=== PATIENT | female | born 1960 | race Caucasian/White ===

== ENCOUNTER 2021-12-07 18:53 | Inpatient (IN) | payer OTHER, BC, SELFPAY ==
--- NOTE | ~2021-12-07 | XR_ITS ---
XR hip RT 2V w AP pelvis DATE: 12/08/2021 14:30 INDICATION: Fall yesterday. TECHNIQUE: AP pelvis. AP and lateral views of right hip COMPARISON: None FINDINGS: There is a probable right femoral neck fracture with possible intertrochanteric involvement . There is minimal displacement. CT pelvic examination including right hip would be helpful for more definitive evaluation. No pelvic fracture or bone destruction is detected. The pubic symphysis and sacroiliac joints are int act. Hip joint spaces are symmetric and well preserved. IMPRESSION: Probable right femoral neck fracture with possible intertrochanteric extension; consider CT pelvis for more definitive evaluation Reviewed, dictated and finalized at location A. IMPRESSION: Probable right femoral neck fracture with possible intertrochanteri c extension; consider CT pelvis for more definitive evaluation
--- NOTE | ~2021-12-07 | XR_ITS ---
XR chest 1V portable DATE: 12/08/2021 05:45 INDICATION: Preoperative evaluation TECHNIQUE: Portable upright AP chest on 12/08/2021 at 0530 hours COMPARISON: None FINDINGS: Normal heart size. Mild aortic tortuosity. No hilar or mediastinal enlargement. No pulmonary infiltrate or consolidation, pleural effusion or pulmonary vascular congestion or pneumo thorax. IMPRESSION: No active cardiopulmonary disease Reviewed, dictated and finalized at location A.
--- NOTE | ~2021-12-07 | XR_ITS ---
EXAMINATION: XR surgery orthopedic DATE: 12/09/2021 9:05 CDT INDICATION: RIGHT HIP PINNING . TECHNIQUE: A total of 10 fluoroscopic images of the right hip were obtained during by the surgeon. I was not present in the operating room. Fluoroscopy exposure time was 187.6 seconds, dose 68.21 mGym2. COMPARISON: None FINDINGS: Multiple fluoroscopic images document successful screw fixation of a right femoral neck fracture. IMPRESSION: No radiographic evidence of procedure or hardware-related complication. Reviewed, dictated and finalized at location K.
--- NOTE | 2021-12-07 18:48 | ADMGEN ---
This patient, Carol Ann Mckeon, was admitted to Medical Room 246-. Patient/family oriented to hospital policies and general routines including ID bracelet, bed and alarms, visiting hours, pain management, procedures, bathroom and other care routines, personal items, smoking policy, room service/diet, and visiting hours. Information on how to activate the Rapid Response Team has been discussed. Patient/Family are encouraged to report perceived risks to care and to ask questions if they do not understand what they are told or what they should do.
[2021-12-07 18:49] VITALS: BP 145/84; PULSE 73; RESP 14; TEMP 36.2; O2SAT 98
[2021-12-07 19:34] VITALS: BP 123/84; PULSE 80; RESP 18; TEMP 36.1; O2SAT 95
[2021-12-07] MEDS: MORPHINE SULFATE (*CRX) 2 MG/ML INJ IV PUSH (19:44)
--- NOTE | 2021-12-07 20:00 | PM.IMHP ---
H&P: HPI History of Present Illness Date/Time: 12/07/21 20:00 Chief Complaint: Right hip fracture. Narrative: This is a very pleasant 61-year-old female with hypertension who is a direct admission to the medical floor from the ER at [facility] after she was found to have a hip fracture after a fall. While walking across a tile floor at work today she got her foot tripped up on an uneven surface which caused her to lose her balance and fall onto her right hip. She reports hearing a ?pop? in the hip and she was unable to get herself up without help. When she got up she could not bear weight on the right leg due to severe pain in the right hip and groin. She was taken to [facility] Emergency Department and was found to have a right femoral neck fracture. Dr. Naylor was consulted due to lack of orthopedic surgery at that facility and he has graciously agreed to see her in consult. At the time my evaluation she complains of significant aching pain in her right hip radiating into the groin and occasionally down her right leg. She did not sustain other injuries in the fall and she specifically denies head trauma and loss of consciousness. She also denies antecedent symptoms prior to the fall. Review of Systems Review of Systems: Twelve systems were reviewed. She received her 2nd COVID booster proximally 1/2 weeks ago and she felt bad for a day however has felt great since that time. No recent cold or flu symptoms. She has no history of cardiac or pulmonary disease. No exertional chest pain or shortness of breath. No syncope or presyncope. She had diverticulitis in October and had previously struggled with constipation however she is now eating a higher fiber diet and is having regular bowel movements. No dysuria or signs of UTI. No history of DVT. Except as documented, all other systems were reviewed and are negative. [facility] Past Medical History Medical History (Updated 12/07/21 @ 22:58 by Suzette Viveros PA-C) Anxiety and depression Diverticulitis (10/2021) Hypertension Overactive bladder Surgical History Surgical History (Updated 12/07/21 @ 22:58 by Suzette Viveros PA-C) History of dilation of urethra History of tubal ligation Family History Family History Father COPD (chronic obstructive pulmonary disease) Heart failure Colon cancer Mother Hypertension Social History Social History (Updated 12/07/21 @ 22:59 by Suzette Viveros PA-C) Social History: Surrogate decision maker: Toby Mckeon, . Code status: Full code. Smoking status: Never smoker Alcohol intake: current Drinks per week: 2 Substance use: never Additional living arrangements comments: The patient lives with her in [place]. They have a 31-year-old daughter with autism who lives in a skilled nursing in [place]. Additional occupation/education comments: Works at a [employer] in [place]. Spiritual care concerns: No Meds Home Medications and Allergies Home Medications Medication Instructions Recorded Confirmed Type amitriptyline 10 mg PO HS 12/07/21 12/07/21 History escitalopram oxalate 20 mg PO DAILY 12/07/21 12/07/21 History latanoprost 1 drp EACH EYE HS 12/07/21 12/07/21 History lisinopril 10 mg PO DAILY 12/07/21 12/07/21 History lorazepam 1 mg PO HS 12/07/21 12/07/21 History vibegron [Gemtesa] 75 mg PO DAILY 12/07/21 12/07/21 History Allergies Allergy/AdvReac Type Severity Reaction Status Date / Time prednisone Allergy Insomnia Verified 12/07/21 18:44 Sulfa (Sulfonamide Allergy Rash Verified 12/07/21 18:44 Antibiotics) Vital Signs Vital Signs - 24 hr 12/07/21 18:49 12/07/21 19:34 Temperature 97.2 F L 97 F L Pulse Rate 73 80 Respiratory Rate 14 18 Blood Pressure 145/84 H 123/84 Pulse Oximetry 98 95 Exam Narrative: General: Well-developed female in the semi-Larkin position in bed. Weight: 81.9 kg. BMI: 30.0. HEENT:
[2021-12-07] MEDS: HYDROcodone/acetaminophen (*CRX) 5-325 MG TABLET 1 TAB PO (21:32)
[2021-12-07] MEDS: LATANOPROST 0.005% OP SOLN 2.5 ML BTL 1 DROP EACH EYE (23:05)
[2021-12-07] MEDS: AMITRIPTYLINE HCL 10 MG TABLET PO (23:06)
[2021-12-07] MEDS: LORazepam (*CRX) 1 MG TABLET PO (23:06)
[2021-12-08] MEDS: HYDROcodone/acetaminophen (*CRX) 5-325 MG TABLET 1 TAB PO ×2 (03:10→17:47)
[2021-12-08 03:35] VITALS: O2SAT 94
[2021-12-08 03:59] VITALS: BP 121/70; PULSE 66; RESP 17; TEMP 35.8; O2SAT 94
[2021-12-08 05:08] LABS: Hematocrit 37.6 % (37.0-47.0); Mean Corpuscular HGB Conc 31.9 g/dl (32-36); Mean Platelet Volume 11.4 fl (7.4-10.4); Platelet Count Result 161 k/mm3 (150-375); Red Cell Distribution Width 13.4 % (11.5-14.5); White Blood Count 7.2 K/mm3 (4.5-10.0)
[2021-12-08 05:19] LABS: INR 1.1; Prothrombin Time 13.7 Seconds (11.1-14.7)
[2021-12-08 05:20] LABS: Partial Thromboplastin Time 29.4 SECONDS (22.3-36.8)
[2021-12-08 05:22] LABS: Alanine Aminotransferase 40 U/L (4-35); Albumin Level 3.8 g/dL (3.5-5.1); Alkaline Phosphatase 72 U/L (38-126); Anion Gap 2 mmol/L (8-16); Aspartate Amino Transferase 24 U/L (14-36); Bilirubin,Total 0.5 mg/dL (0.2-1.3); Blood Urea Nitrogen 10 mg/dL (7-17); Calcium 8.7 mg/dL (8.4-10.2); Carbon Dioxide 31 mmol/L (22-30); Chloride 105 mmol/L (98-107); Estimated CRCL calculation 79 ml/min; Estimated Glomerular Filt Rate > 60; Glucose 93 mg/dL (65-110); Magnesium 2.2 mg/dL (1.6-2.3); Potassium 3.9 mmol/L (3.4-5.0); Sodium 138 mmol/L (137-145)
[2021-12-08] MEDS: MORPHINE SULFATE (*CRX) 2 MG/ML INJ IV PUSH ×2 (08:24→13:41)
[2021-12-08 08:43] VITALS: BP 126/76; PULSE 74
[2021-12-08] MEDS: lisinopriL 10 MG TABLET PO (08:43)
[2021-12-08] MEDS: ESCITALOPRAM OXALATE 10 MG TABLET 20 MG PO (08:43)
--- NOTE | 2021-12-08 09:16 | ECG_ITS ---
Measurements Intervals [place] Rate: 68 P: 48 WY: 162 QRS: 11 QRSD: 105 T: 31 QT: 386 QTc: 412 Interpretive Statements SINUS RHYTHM NO PREVIOUS ECG AVAILABLE FOR COMPARISON Electronically Signed On 12-08-2021 13:43:04 CDT by Marie Christian M.D.
[2021-12-08 11:00] VITALS: O2SAT 94
[2021-12-08] MEDS: ACETAMINOPHEN 325 MG TABLET 650 MG PO (11:00)
--- NOTE | 2021-12-08 12:19 | PM.IMPN ---
Progress Note: A&P Assessment and Plan (1) Fracture of right hip: Code(s): S72.001A - Fracture of unspecified part of neck of right femur, initial encounter for closed fracture Status: Acute Assessment and Plan: Reported right femoral neck fracture though I have not seen the official records from the outside facility as they are not available to me at this time. Dr. Naylor was consulted and he has graciously agreed to see the patient. She will be NPO tonight in case she has to have surgery tomorrow however that is not yet been confirmed. Analgesics available as needed. She will be on strict bed rest. Check preop chest x-ray, EKG, and labs in a.m. 12/08/2021 Interval history: Patient 61-year-old female status post fall and fracture of the right hip fracture, patient complains of pain with weight-bearing and movement, patient will be seen by an orthopedic surgeon and further recommendation to follow, will continue to monitor (2) Hypertension: Code(s): I10 - Essential (primary) hypertension Status: Acute Assessment and Plan: Blood pressures were reviewed and they are reasonable in light of her pain. Continue lisinopril and monitor daily. (3) Anxiety and depression: Code(s): F41.9 - Anxiety disorder, unspecified; F32.A - Depression, unspecified Status: Acute Assessment and Plan: No acute issues. Continue amitriptyline and escitalopram. Subjective Date/time seen: 12/08/21 12:19 Chief Complaint: Right hip fracture. Narrative: This is a very pleasant 61-year-old female with hypertension who is a direct admission to the medical floor from the ER at [facility] after she was found to have a hip fracture after a fall. While walking across a tile floor at work today she got her foot tripped up on an uneven surface which caused her to lose her balance and fall onto her right hip. She reports hearing a ?pop? in the hip and she was unable to get herself up without help. When she got up she could not bear weight on the right leg due to severe pain in the right hip and groin. She was taken to [facility] Emergency Department and was found to have a right femoral neck fracture. Dr. Naylor was consulted due to lack of orthopedic surgery at that facility and he has graciously agreed to see her in consult. At the time my evaluation she complains of significant aching pain in her right hip radiating into the groin and occasionally down her right leg. She did not sustain other injuries in the fall and she specifically denies head trauma and loss of consciousness. She also denies antecedent symptoms prior to the fall. 12/08/2021 Interval history: Patient 61-year-old female status post fall and fracture of the right hip fracture, patient complains of pain with weight-bearing and movement, patient will be seen by an orthopedic surgeon and further recommendation to follow, will continue to monitor Review of Systems Review of Systems: All systems reviewed & are unremarkable except as noted in HPI and below Exam Narrative: Patient is comfortable, NAD HEENT: eyes are clear and none icteric LUNGS: normal respiratory effort ABD: distended Lower extremities: no edema SKIN: nonjaundiced Neuro: grossly intact. Objective Data Vital Signs Vital Signs: Vital Signs - 24 hr 12/07/21 18:49 12/07/21 19:34 12/08/21 03:35 Temperature 97.2 F L 97 F L Pulse Rate 73 80 Respiratory Rate 14 18 Blood Pressure 145/84 H 123/84 Pulse Oximetry 98 95 94 12/08/21 03:59 12/08/21 08:43 12/08/21 11:00 Temperature 96.5 F L Pulse Rate 66 74 Respiratory Rate 17 Blood Pressure 121/70 126/76 Pulse Oximetry 94 94 Intake/Output Intake/Output: Intake & Output 12/05/21 12/06/21 12/07/21 12/08/21 23:59 23:59 23:59 23:59 Intake Total 120 Output Total 200 50 Balance -200 70 Meds/Results Medications: Active Medications Generic Name Dose Route Start Last Admin Trade Name Fr
--- NOTE | 2021-12-08 12:45 | PHAR ---
HOME MEDICATION VERIFIED BY PHARMACY: GEMTESA (VIBEGRON) 75MG TABLET
--- NOTE | 2021-12-08 13:30 | PM.CNOR ---
Assessment and Plan Assessment and plan (1) Fracture of right hip: Code(s): S72.001A - Fracture of unspecified part of neck of right femur, initial encounter for closed fracture <YECENIA Odom - Last Filed: 12/10/21 19:39> Status: Acute <YECENIA Odom - Last Filed: 12/10/21 19:39> Assessment and Plan: Right hip fracture after a fall from standing height at work. Discussed treatment options with patient and her . She will benefit from percutaneous hip pinning. Discussed risks, benefits, and alternatives to surgery. Surgery likely tomorrow. She will need to be NPO at midnight. Discussed expectations for recovery. She would like to be discharged home after surgery. Her is retired and will be able to help her. Proceed with right percutaneous hip pinning. Will order xrays today. Dr. Naylor reviewed xrays from previous hospital yesterday. <YECENIA Odom - Last Filed: 12/10/21 19:39> Additional Plan Valgus impacted femoral neck fracture. Patient seen and examined. Only minimal displacement with good bone quality. The fracture is amenable to in situ pinning. I reviewed the proposed procedure. Risks, benefits, and alternatives discussed. Risks include further displacement, pain, painful hardware, avascular necrosis, and arthritis. Proceed with percutaneous pinning right hip. <Zeke Naylor MD - Last Filed: 12/09/21 08:33> History of Present Illness HPI Consult date: 12/10/21 <YECENIA Odom - Last Filed: 12/10/21 19:39> 12/09/21 <Zeke Naylor MD - Last Filed: 12/09/21 08:33> Consult reason: fracture <YECENIA Odom - Last Filed: 12/10/21 19:39> Chief complaint: Right Hip Fracture <YECENIA Odom - Last Filed: 12/10/21 19:39> Narrative: Pleasant 61 y/o patient presents as a direct admission for a hip fracture. Patient was at work and fell directly onto her right hip. She states while walking across uneven tile floor she tripped her foot, lost her balance, and fell directly onto her right hip. She reports hearing a ?pop? and was unable to get up or bear weight. Severe pain in the right hip and groin. She did not hit her head. No LOC. Denies symptoms prior to fall. She typically walks on her own without gait aids. She states she has a history of HTN, recent diverticulitis, depression and anxiety. She has been told she has osteopenia and takes calcium and vitamin D. No prior hip pain. She lives at home with her who is retired. 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 Today, she complains of significant aching pain in her right hip radiating into the groin and occasionally down her right leg. No numbness or tingling. No calf pain. <YECENIA Odom - Last Filed: 12/10/21 19:39> Review of Systems Review of Systems: All systems reviewed & are unremarkable except as noted in HPI and below <YECENIA Odom - Last Filed: 12/10/21 19:39> [facility] Past Medical History Medical History: Medical History Anxiety and depression Diverticulitis (10/2021) Hypertension Overactive bladder <YECENIA Odom - Last Filed: 12/10/21 19:39> Surgical History Surgical History: Surgical History History of dilation of urethra History of tubal ligation <YECENIA Odom - Last Filed: 12/10/21 19:39> Family History Family History: Family History Father COPD (chronic obstructive pulmonary disease) Heart failure Colon cancer Mother Hypertension <YECENIA Odom - Last Filed: 12/10/21 19:39> Social History Social History: Social History Social History: Surrogate decision maker: yenni Bradford
[2021-12-08 13:59] VITALS: BP 112/69; PULSE 72; RESP 12; TEMP 36.2; O2SAT 95
--- NOTE | 2021-12-08 18:07 | WPDANESEPP ---
Anes - Eval Pre Procedure Procedure: Right hip pinning Date/Time: 12/08/21 18:07 Surgeon: lou Preop Diagnosis: right hip fracture Pre Op Diagnosis: Right Hip Fracture Patient Data Age: 61 Gender: F Height: 1.65 m Weight: 81.9 kg Last Vital Signs Temp 36.2 C L 12/08/21 13:59 Pulse 72 12/08/21 13:59 Resp 12 12/08/21 13:59 BP 112/69 12/08/21 13:59 Pulse Ox 95 12/08/21 13:59 Allergies Allergy/AdvReac Type Severity Reaction Status Date / Time prednisone Allergy Insomnia Verified 12/07/21 18:44 Sulfa (Sulfonamide Allergy Rash Verified 12/07/21 18:44 Antibiotics) Home Medications Medication Instructions Recorded Confirmed Type amitriptyline 10 mg PO HS 12/07/21 12/07/21 History escitalopram oxalate 20 mg PO DAILY 12/07/21 12/07/21 History latanoprost 1 drp EACH EYE HS 12/07/21 12/07/21 History lisinopril 10 mg PO DAILY 12/07/21 12/07/21 History lorazepam 1 mg PO HS 12/07/21 12/07/21 History vibegron [Gemtesa] 75 mg PO DAILY 12/07/21 12/07/21 History Laboratory Tests 12/08/21 12/08/21 12/08/21 05:02 05:02 05:02 WBC 7.2 K/mm3 K/mm3 (4.5-10.0) RBC 4.00 M/mm3 L M/mm3 (4.2-5.4) Hgb 12.0 g/dL g/dL (12.0-15.0) Hct 37.6 % % (37.0-47.0) MCV 94.0 fl fl (80-100) MCH 30.0 pg pg (26-34) MCHC 31.9 g/dl L g/dl (32-36) RDW 13.4 % % (11.5-14.5) Plt Count 161 k/mm3 k/mm3 (150-375) MPV 11.4 fl H fl (7.4-10.4) PT 13.7 Seconds Seconds (11.1-14.7) INR 1.1 APTT 29.4 SECONDS SECONDS (22.3-36.8) Sodium 138 mmol/L mmol/L (137-145) Potassium 3.9 mmol/L mmol/L (3.4-5.0) Chloride 105 mmol/L mmol/L (98-107) Carbon Dioxide 31 mmol/L H mmol/L (22-30) Anion Gap 2 mmol/L L mmol/L (8-16) BUN 10 mg/dL mg/dL (7-17) Creatinine 0.70 mg/dL mg/dL (0.7-1.0) Estim Creat Clear Calc 79 ml/min ml/min Estimated GFR > 60 (59 - ) Glucose 93 mg/dL mg/dL (65-110) Calcium 8.7 mg/dL mg/dL (8.4-10.2) Magnesium 2.2 mg/dL mg/dL (1.6-2.3) Total Bilirubin 0.5 mg/dL mg/dL (0.2-1.3) AST 24 U/L U/L (14-36) ALT 40 U/L H U/L (4-35) Alkaline Phosphatase 72 U/L U/L (38-126) Total Protein 7.0 g/dL g/dL (6.3-8.2) Albumin 3.8 g/dL g/dL (3.5-5.1) Blood Type Antibody Screen 12/08/21 15:25 WBC RBC Hgb Hct MCV MCH MCHC RDW Plt Count MPV PT INR APTT Sodium Potassium Chloride Carbon Dioxide Anion Gap BUN Creatinine Estim Creat Clear Calc Estimated GFR Glucose Calcium Magnesium Total Bilirubin AST ALT Alkaline Phosphatase Total Protein Albumin Blood Type O Positive Antibody Screen Negative Patient hx anesthesia problems: none Family hx anesthesia problems: none Results Review: All pre-operative results and documents have been reviewed as part of the pre-operative evaluation. [facility] Past Medical History Medical History Anxiety and depression Diverticulitis (10/2021) Hypertension Overactive bladder Surgical History Surgical History History of dilation of urethra History of tubal ligation Family History Family History Father COPD (chronic obstructive pulmonary disease) Heart failure Colon cancer Mother Hypertension Social History Social History Social History: Surrogate decision maker: Joey
[2021-12-08] MEDS: SIMETHICONE 125 MG CHEW TAB PO (18:57)
[2021-12-08 19:58] VITALS: BP 120/73; PULSE 76; RESP 17; TEMP 36.3; O2SAT 92
[2021-12-08] MEDS: LORazepam (*CRX) 1 MG TABLET PO (20:28)
[2021-12-08] MEDS: AMITRIPTYLINE HCL 10 MG TABLET PO (20:28)
[2021-12-08] MEDS: LATANOPROST 0.005% OP SOLN 2.5 ML BTL 1 DROP EACH EYE (20:28)
[2021-12-09] VITALS (16 sets, daily range): BP systolic 104–133; BP diastolic 58–76; PULSE 74–97; RESP 12–18; TEMP 35.9–36.8; O2SAT 92–99
[2021-12-09] MEDS: HYDROcodone/acetaminophen (*CRX) 5-325 MG TABLET 1 TAB PO ×4 (00:53→22:22)
--- NOTE | 2021-12-09 08:31 | WPDANESEFPP ---
Anes - Eval Final PreProcedure Day of Procedure 12/09/21 08:31 Patient weight: obese Heart: regular rate and rhythm Lungs: clear to auscultation and normal air movement Airway: Mallampati scale class II Neurological: alert and oriented Last oral intake: >/= 8 hours ASA classification: III Emergent: no Anesthetic plan: proceed Anesthesia type and monitoring: general LMA Results Review: All pre-operative results and documents have been reviewed as part of the pre-operative evaluation. Informed Consent: The patient's anesthetic plan and its attendant risks and benefits were discussed with the patient/family/POA. Questions were solicited and answers provided to the satisfaction of the patient/family/POA.
--- NOTE | 2021-12-09 08:33 | WPDHPUPDATE1 ---
History and Physical Update Update Date/Time: 12/09/21 08:33 History and Physical has been reviewed, including an updated exam of the patient. There are NO changes in the patient's condition. Risks, benefits, and alternatives have been discussed and questions answered. Patient agrees to proceed with procedure.
--- NOTE | 2021-12-09 09:00 | PC.NURSE ---
To surgery per bed. All questions answered.
[2021-12-09] MEDS: ceFAZolin SODIUM 1 GM VIAL 2 GM IV PUSH (09:20)
[2021-12-09] MEDS: LACTATED RINGERS 1,000 ML 30 ML IV CONT (10:24)
--- NOTE | 2021-12-09 10:24 | P.OP_ITS ---
Procedure Note - Detailed Date of Procedure 12/09/21 Pre-op Diagnosis Right hip, valgus impacted, femoral neck fracture. Post-op Diagnosis Same Procedure Performed Percutaneous pinning right femoral neck fracture. Surgeon Zeke Naylor MD Anesthesia General Findings Very good bone quality Description of Procedure Preoperative antibiotics were given. The patient was brought to the operating room. In general anesthetic was administered. The patient was carefully placed on the fracture table. By planar fluoroscopy was used to confirm maintenance of reduction and treatment of reduction as necessary. The hip was prepped and draped in usual sterile fashion with a sterile curtain. A stab incision was created at the inferior trochanter. The guide pin was placed into the center of the femoral neck inferiorly. Two additional guide pins were placed superiorly were inverted triangle shape. Measurements were taken and the outer cortex was drilled. Three partially-threaded cannulated screws were placed. The crease incisions were closed with interrupted 4-0 Monocryl suture followed by Steri- Strips. The sterile dressing was applied. The patient was transferred to the recovery room in stable condition and extubated. There were no complications. Implants 7.3mm [place] cannulated screws, long partially threaded; 90,85,85 mm. Estimated Blood Loss 10 Urine Output 400 Drains No Pathology None sent Complications No immediate complications Condition Stable Disposition PACU [facility] Billing Surgery - Charge Forward: Surgery Billing
[2021-12-09] MEDS: lisinopriL 10 MG TABLET PO (11:28)
[2021-12-09] MEDS: ESCITALOPRAM OXALATE 10 MG TABLET 20 MG PO (11:28)
--- NOTE | 2021-12-09 11:28 | PC.NURSE ---
Returned from OR per bed. Report received from PILAR Sotelo.
--- NOTE | 2021-12-09 11:59 | PM.IMPN ---
Progress Note: A&P Assessment and Plan (1) Fracture of right hip: Code(s): S72.001A - Fracture of unspecified part of neck of right femur, initial encounter for closed fracture Status: Acute Assessment and Plan: Reported right femoral neck fracture though I have not seen the official records from the outside facility as they are not available to me at this time. Dr. Naylor was consulted and he has graciously agreed to see the patient. She will be NPO tonight in case she has to have surgery tomorrow however that is not yet been confirmed. Analgesics available as needed. She will be on strict bed rest. Check preop chest x-ray, EKG, and labs in a.m. 12/08/2021 Interval history: Patient 61-year-old female status post fall and fracture of the right hip fracture, patient complains of pain with weight-bearing and movement, patient will be seen by an orthopedic surgeon and further recommendation to follow, will continue to monitor. 12/09/2021 Interval history: Patient 61-year-old female status post fall and fracture of the right hip fracture, today patient was seen by surgeon and right hip ORIF, patient complains of pain with movement, history of colitis, concerns for constipation, will start patient on colace and miralax, low fiber diet patient is passing gas, patient will be seen by an orthopedic surgeon and further recommendation to follow, will continue to monitor. (2) Hypertension: Code(s): I10 - Essential (primary) hypertension Status: Acute Assessment and Plan: Blood pressures were reviewed and they are reasonable in light of her pain. Continue lisinopril and monitor daily. (3) Anxiety and depression: Code(s): F41.9 - Anxiety disorder, unspecified; F32.A - Depression, unspecified Status: Acute Assessment and Plan: No acute issues. Continue amitriptyline and escitalopram. Subjective Date/time seen: 12/09/21 11:59 12/09/2021 Interval history: Patient 61-year-old female status post fall and fracture of the right hip fracture, today patient was seen by surgeon and right hip ORIF, patient complains of pain with movement, history of colitis, concerns for constipation, will start patient on colace and miralax, low fiber diet patient is passing gas, patient will be seen by an orthopedic surgeon and further recommendation to follow, will continue to monitor. Review of Systems Review of Systems: All systems reviewed & are unremarkable except as noted in HPI and below Exam Narrative: Patient is comfortable, NAD HEENT: eyes are clear and none icteric LUNGS: normal respiratory effort ABD: distended Lower extremities: no edema SKIN: nonjaundiced Neuro: grossly intact. Objective Data Vital Signs Vital Signs: Vital Signs - 24 hr 12/08/21 13:59 12/08/21 19:58 12/09/21 03:50 Temperature 97.2 F L 97.3 F L 97.8 F Pulse Rate 72 76 76 Respiratory Rate 12 17 16 Blood Pressure 112/69 120/73 131/76 Pulse Oximetry 95 92 97 12/09/21 10:24 12/09/21 10:35 12/09/21 10:45 Temperature 97.2 F L Pulse Rate 90 82 85 Respiratory Rate 16 12 12 Blood Pressure 118/63 118/59 L 111/68 Pulse Oximetry 99 99 99 12/09/21 11:00 12/09/21 11:05 Temperature Pulse Rate 81 84 Respiratory Rate 12 12 Blood Pressure 117/63 113/68 Pulse Oximetry 98 98 Intake/Output Intake/Output: Intake & Output 12/06/21 12/07/21 12/08/21 12/09/21 23:59 23:59 23:59 23:59 Intake Total 820 100 Output Total 200 500 800 Balance -200 320 -700 Meds/Results Medications: Active Medications Generic Name Dose Route Start Last Admin Trade Name Freq PRN Reason Stop Dose Admin Acetaminophen 650 mg 12/07/21 19:04 12/08/21 11:00 Acetaminophen 325 Mg Tablet PO 650 mg Q4H PRN Administration Mild Pain (1-3) or Fever Hydrocodone Bitart/Acetaminophen 1 tab 12/07/21 19:04 12/09/21 11:40 Hydrocodone/Acetaminophen (*Crx) 5-325 Mg Tablet PO 1 tab Q4H PRN Administration
[2021-12-09] MEDS: RIVAROXABAN 10 MG TABLET PO (16:11)
[2021-12-09] MEDS: SENNA/DOCUSATE SODIUM TABLET 2 TAB PO (16:11)
[2021-12-09] MEDS: LATANOPROST 0.005% OP SOLN 2.5 ML BTL 1 DROP EACH EYE (21:11)
[2021-12-09] MEDS: LORazepam (*CRX) 1 MG TABLET PO (21:11)
[2021-12-09] MEDS: AMITRIPTYLINE HCL 10 MG TABLET PO (21:11)
[2021-12-10 03:47] VITALS: BP 121/78; PULSE 79; RESP 17; TEMP 36.2; O2SAT 95
[2021-12-10] MEDS: HYDROcodone/acetaminophen (*CRX) 5-325 MG TABLET 1 TAB PO ×3 (06:15→17:19)
[2021-12-10] MEDS: polyethylene glycoL 3350 17 GM POWD.PACK PO (06:18)
[2021-12-10] MEDS: SENNA/DOCUSATE SODIUM TABLET 2 TAB PO ×2 (06:19→17:19)
[2021-12-10] MEDS: ESCITALOPRAM OXALATE 10 MG TABLET 20 MG PO (08:06)
[2021-12-10] MEDS: lisinopriL 10 MG TABLET PO (08:06)
[2021-12-10 10:00] VITALS: BP 110/85; PULSE 62; RESP 20; TEMP 36.2; O2SAT 98
[2021-12-10 10:07] LABS: Hematocrit 36.2 % (37.0-47.0); Hemoglobin 11.7 g/dL (12.0-15.0); Mean Corpuscular HGB Conc 32.3 g/dl (32-36); Mean Corpuscular Volume 92.8 fl (80-100); Mean Platelet Volume 10.8 fl (7.4-10.4); Platelet Count Result 192 k/mm3 (150-375); Red Cell Distribution Width 13.6 % (11.5-14.5)
[2021-12-10 10:22] LABS: Anion Gap 6 mmol/L (8-16); Blood Urea Nitrogen 11 mg/dL (7-17); Calcium 8.9 mg/dL (8.4-10.2); Carbon Dioxide 27 mmol/L (22-30); Chloride 103 mmol/L (98-107); Estimated CRCL calculation 79 ml/min; Estimated Glomerular Filt Rate > 60; Glucose 140 mg/dL (65-110); Potassium 3.9 mmol/L (3.4-5.0); Sodium 136 mmol/L (137-145)
--- NOTE | 2021-12-10 15:40 | PM.IMPN ---
Progress Note: A&P Assessment and Plan (1) Fracture of right hip: Code(s): S72.001A - Fracture of unspecified part of neck of right femur, initial encounter for closed fracture Status: Acute Assessment and Plan: Reported right femoral neck fracture though I have not seen the official records from the outside facility as they are not available to me at this time. Dr. Naylor was consulted and he has graciously agreed to see the patient. She will be NPO tonight in case she has to have surgery tomorrow however that is not yet been confirmed. Analgesics available as needed. She will be on strict bed rest. Check preop chest x-ray, EKG, and labs in a.m. 12/08/2021 Interval history: Patient 61-year-old female status post fall and fracture of the right hip fracture, patient complains of pain with weight-bearing and movement, patient will be seen by an orthopedic surgeon and further recommendation to follow, will continue to monitor. 12/09/2021 Interval history: Patient 61-year-old female status post fall and fracture of the right hip fracture, today patient was seen by surgeon and right hip ORIF, patient complains of pain with movement, history of colitis, concerns for constipation, will start patient on colace and miralax, low fiber diet patient is passing gas, patient will be seen by an orthopedic surgeon and further recommendation to follow, will continue to monitor. 12/10/2021 Interval history: Patient 61-year-old female status post fall and fracture of the right hip fracture, on 12/09 patient was seen by surgeon and had right hip ORIF, POD# 1 today patient complains of pain with movement and weight bearing, history of colitis, concerns for constipation, started patient on colace and miralax, low fiber diet patient is passing gas, will give suppository, Patient will continue PT/OT patient will be seen by an orthopedic surgeon and further recommendation to follow, will continue to monitor. (2) Hypertension: Code(s): I10 - Essential (primary) hypertension Status: Acute Assessment and Plan: Blood pressures were reviewed and they are reasonable in light of her pain. Continue lisinopril and monitor daily. (3) Anxiety and depression: Code(s): F41.9 - Anxiety disorder, unspecified; F32.A - Depression, unspecified Status: Acute Assessment and Plan: No acute issues. Continue amitriptyline and escitalopram. Subjective Date/time seen: 12/10/21 15:40 12/10/2021 Interval history: Patient 61-year-old female status post fall and fracture of the right hip fracture, on 12/09 patient was seen by surgeon and had right hip ORIF, POD# 1 today patient complains of pain with movement and weight bearing, history of colitis, concerns for constipation, started patient on colace and miralax, low fiber diet patient is passing gas, will give suppository, Patient will continue PT/OT patient will be seen by an orthopedic surgeon and further recommendation to follow, will continue to monitor. Review of Systems Review of Systems: All systems reviewed & are unremarkable except as noted in HPI and below Exam Narrative: Patient is comfortable, NAD HEENT: eyes are clear and none icteric LUNGS: normal respiratory effort ABD: distended Lower extremities: no edema SKIN: nonjaundiced Neuro: grossly intact. Objective Data Vital Signs Vital Signs: Vital Signs - 24 hr 12/09/21 16:55 12/09/21 17:00 12/09/21 19:29 Temperature 98.3 F 97.3 F L Pulse Rate 79 85 Respiratory Rate 18 17 Blood Pressure 123/66 105/65 Pulse Oximetry 94 94 95 12/09/21 20:00 12/09/21 21:23 12/09/21 23:37 Temperature 98 F Pulse Rate 74 74 Respiratory Rate 18 18 Blood Pressure 104/58 L Pulse Oximetry 96 95 96 12/10/21 03:47 12/10/21 10:00 Temperature 97.2 F L 97.1 F L Pulse Rate 79 62 Respiratory Rate 17 20 Blood Pressure 121/78 110/85 Pulse Oximetry 95 98 Intake/Output Intake/Output: Intake &
[2021-12-10] MEDS: RIVAROXABAN 10 MG TABLET PO (17:19)
[2021-12-10 18:27] VITALS: BP 124/73; PULSE 72; RESP 16; TEMP 36.6; O2SAT 97
--- NOTE | 2021-12-10 19:39 | PM.PNORT ---
Progress Note: A&P Assessment and Plan (1) Fracture of right hip: Code(s): S72.001A - Fracture of unspecified part of neck of right femur, initial encounter for closed fracture Status: Acute Assessment and Plan: Postop day 1: Percutaneous pinning right femoral neck fracture. Patient tolerated procedure well. No complications. Patient has been working with PT/OT. She is working on getting the equipment needed to return to home safely. Her will be able to help her at home. No numbness or tingling. She will need to remain partial weight bearing with a walker until her next visit. We discussed expectations for recovery. She and her show good understanding. Plan for discharge home tomorrow. Subjective Subjective Date/Time Seen: 12/10/21 19:39 Patient progressing well. Pain with movement and ambulation. Patient and her have been working to get the appropriate equipment for her to be able to return home safely. No CP, SOB, other complaints. She has been working with PT. Review of Systems Review of Systems: All systems reviewed & are unremarkable except as noted in HPI and below Exam Narrative: Overweight 61 y/o female. Resting comfortably in bed. Wearing compression socks bilaterally. Dressing dry and intact with no drainage. Moderate swelling. No edema in left foot and leg. No ecchymosis. No erythema. No hematoma. Range of motion limited due to pain. Calf nontender. Thigh nontender. No varicosities. Distal pulses palpable. Light touch sensation intact. Able to wiggle toes. Objective Data Vital Signs Vital Signs: Vital Signs - 24 hr 12/09/21 20:00 12/09/21 21:23 12/09/21 23:37 Temperature 98 F Pulse Rate 74 74 Respiratory Rate 18 18 Blood Pressure 104/58 L Pulse Oximetry 96 95 96 12/10/21 03:47 12/10/21 10:00 12/10/21 18:27 Temperature 97.2 F L 97.1 F L 97.8 F Pulse Rate 79 62 72 Respiratory Rate 17 20 16 Blood Pressure 121/78 110/85 124/73 Pulse Oximetry 95 98 97 Intake/Output Intake/Output: Intake & Output 12/07/21 12/08/21 12/09/21 12/10/21 23:59 23:59 23:59 23:59 Intake Total 820 1210 590 Output Total 905 674 1268 600 Balance -200 320 10 -10 Meds/Results Medications: Active Medications Generic Name Dose Route Start Last Admin Trade Name Freq PRN Reason Stop Dose Admin Acetaminophen 650 mg 12/07/21 19:04 12/08/21 11:00 Acetaminophen 325 Mg Tablet PO 650 mg Q4H PRN Administration Mild Pain (1-3) or Fever Hydrocodone Bitart/Acetaminophen 1 tab 12/07/21 19:04 12/10/21 17:19 Hydrocodone/Acetaminophen (*Crx) 5-325 Mg Tablet PO 1 tab Q4H PRN Administration Moderate Pain (4-6) Amitriptyline HCl 10 mg 12/07/21 22:55 12/09/21 21:11 Amitriptyline Hcl 10 Mg Tablet PO 10 mg HS KEILA Administration Docusate Sodium 100 mg 12/07/21 23:06 Docusate Sodium 100 Mg Capsule PO Q12H PRN Constipation Escitalopram Oxalate 20 mg 12/08/21 09:00 12/10/21 08:06 Escitalopram Oxalate 10 Mg Tablet PO 20 mg DAILY KEILA Administration Fentanyl Citrate 25 mcg 12/09/21 08:31 Fentanyl Citrate Inj (*Crx) 100 Mcg/2 Ml Vial IV PUSH Q2M PRN Pain Home Med 1 each 12/08/21 09:00 12/10/21 08:06 Vibegron [Gemtesa] 75 Mg Tablet (Home Med) PO 01/07/22 08:59 1 each DAILY KEILA Administration Latanoprost 1 drop 12/07/21 22:55 12/09/21 21:11 Latanoprost 0.005% Op Soln 2.5 Ml Btl EACH EYE 1 drop HS KEILA Administration Lisinopril 10 mg 12/08/21 09:00 12/10/21 08:06 Lisinopril 10 Mg Tablet PO 10 mg DAILY KEILA Administration Lorazepam 1 mg 12/07/21 22:55 12/09/21 21:11 Lorazepam (*Crx) 1 Mg Tablet PO 1 mg HS KEILA Administration Morphine Sulfate 2 mg 12/07/21 19:04 12/08/21 13:41 Morphine Sulfate (*Crx) 2 Mg/Ml Inj IV PUSH 2 mg Q4H PRN Administration Pain Rated 7-10 Naloxone HCl 0.1 mg 12/09/21 11:10 Naloxone Hcl 0.4 Mg/Ml Vial IV PUSH Q2
[2021-12-10 19:51] VITALS: BP 107/60; PULSE 61; RESP 18; TEMP 36.1; O2SAT 97
[2021-12-10] MEDS: AMITRIPTYLINE HCL 10 MG TABLET PO (20:13)
[2021-12-10] MEDS: LORazepam (*CRX) 1 MG TABLET PO (20:13)
[2021-12-10] MEDS: LATANOPROST 0.005% OP SOLN 2.5 ML BTL 1 DROP EACH EYE (20:13)
[2021-12-11] MEDS: HYDROcodone/acetaminophen (*CRX) 5-325 MG TABLET 1 TAB PO ×2 (00:17→08:25)
[2021-12-11 04:45] VITALS: BP 138/72; PULSE 79; RESP 18; TEMP 36.4; O2SAT 98
[2021-12-11] MEDS: polyethylene glycoL 3350 17 GM POWD.PACK PO (08:24)
[2021-12-11] MEDS: SENNA/DOCUSATE SODIUM TABLET 2 TAB PO (08:26)
[2021-12-11] MEDS: ESCITALOPRAM OXALATE 10 MG TABLET 20 MG PO (08:27)
[2021-12-11] MEDS: lisinopriL 10 MG TABLET PO (08:27)
--- NOTE | 2021-12-11 09:21 | PM.DS ---
DS: Admitting Diagnosis Discharge Date 12/11/2021 Admitting Diagnosis Right hip pain DS: Discharge Diagnosis Discharge Diagnosis (1) Fracture of right hip: Code(s): S72.001A - Fracture of unspecified part of neck of right femur, initial encounter for closed fracture Status: Acute Assessment and Plan: Status post ORIF Orthopedic surgery consult Pain control DVT prophylaxis managed by orthopedic surgeon (2) Hypertension: Code(s): I10 - Essential (primary) hypertension Status: Acute Assessment and Plan: Blood pressures were reviewed and they are reasonable in light of her pain. Continue lisinopril and monitor daily. (3) Anxiety and depression: Code(s): F41.9 - Anxiety disorder, unspecified; F32.A - Depression, unspecified Status: Acute Assessment and Plan: No acute issues. Continue amitriptyline and escitalopram. (4) Constipation: Code(s): K59.00 - Constipation, unspecified Status: Acute Assessment and Plan: Laxative was ordered (5) Hyperglycemia: Code(s): R73.9 - Hyperglycemia, unspecified Status: Acute Assessment and Plan: Probable stress related follow-up with PCP in 1 week DS: Summary Hospital Course Hospital Course: 61 years old female with past medical history of hypertension patient had a fall was found to have a right hip fracture orthopedic was consulted patient had Percutaneous pinning right femoral neck fracture. DVT prophylaxis and pain control and rest per Orthopedic. Patient to follow-up with Orthopedic in 1 wk Time Spent with Patient Time attestation: Total time spent providing and/or coordinating discharge services: Exam Narrative: Patient is comfortable, NAD HEENT: eyes are clear and none icteric LUNGS: normal respiratory effort ABD: distended Lower extremities: no edema SKIN: nonjaundiced Neuro: grossly intact. DS: Data Data Completed and Pending Labs on day of discharge: Labs from last 24 hours 12/10/21 12/10/21 09:54 09:54 WBC 11.0 H RBC 3.90 L Hgb 11.7 L Hct 36.2 L MCV 92.8 MCH 30.0 MCHC 32.3 RDW 13.6 Plt Count 192 MPV 10.8 H Sodium 136 L Potassium 3.9 Chloride 103 Carbon Dioxide 27 Anion Gap 6 L BUN 11 Creatinine 0.70 Estim Creat Clear Calc 79 Estimated GFR > 60 Glucose 140 H Calcium 8.9 Discharge Plan Discharge Attending physician on discharge: Yamileth Conrad M.A. Consulting providers: Zeke Naylor Discharging Clinician: Yamileth Conrad M.A. Patient Disposition: Home Health Service Activity: follow weight bearing status Diet: as tolerated Patient Instructions: Antibiotic Form, Hydrocodone/Acetaminophen (By mouth), Rivaroxaban (By mouth), Joint Replacement Surgery (DC) Stand Alone Forms: General Discharge Information Follow-up/Referrals: Mrai,Sanjeev Bynum MD [Primary Care Provider] - Zeke Naylor MD [Physician] - Discharge Medications: New docusate sodium 100 mg Capsule 100 mg PO Q12H PRN (Reason: Constipation) Qty: 20 RF: 0 Continued latanoprost 0.005 % drops 1 drp EACH EYE HS RF: 0 amitriptyline 10 mg tablet 10 mg PO HS RF: 0 lisinopril 10 mg tablet 10 mg PO DAILY RF: 0 lorazepam 1 mg tablet 1 mg PO HS RF: 0 escitalopram oxalate 20 mg tablet 20 mg PO DAILY RF: 0 Gemtesa 75 mg Tablet 75 mg PO DAILY RF: 0 Date of admission: 12/07/21 18:39 Primary Care Provider: MariSanjeev Admitting Provider: Vishal Angulo Attending physician on admission: Vishal Angulo Condition: Stable Quality VTE Prophylaxis VTE prophylaxis: mechanical ordered
--- NOTE | 2021-12-11 12:47 | PM.PNORT ---
Progress Note: A&P Assessment and Plan (1) Fracture of right hip: Code(s): S72.001A - Fracture of unspecified part of neck of right femur, initial encounter for closed fracture Status: Acute Assessment and Plan: Postop day 2: Percutaneous pinning right femoral neck fracture. Patient tolerated procedure well. No complications. Patient has been working with PT/OT. Her will be able to help her at home. No numbness or tingling. She will need to remain partial weight bearing with a walker until her next visit. We had a lengthy discussion regarding postoperative wound care, limitations, expectations, and exercises. Patient shows good understanding. She is okay for discharge from orthopedic standpoint. DVT prophylaxis: Xarelto. Pain medication: Percocet. Will call patient with follow up appointment in 3 weeks. Subjective Subjective Date/Time Seen: 12/11/21 12:47 Patient progressing well. Pain manageable with pain medications. No numbness or tingling. Participating well with PT. No other complaints. Review of Systems Review of Systems: All systems reviewed & are unremarkable except as noted in HPI and below Exam Narrative: Overweight 61 y/o female. Resting comfortably in bed. Wearing compression socks bilaterally. Dressing dry and intact with no drainage. Moderate swelling. No edema in left foot and leg. No ecchymosis. No erythema. No hematoma. Range of motion limited due to pain. Calf nontender. Thigh nontender. No varicosities. Distal pulses palpable. Light touch sensation intact. Able to wiggle toes. Objective Data Vital Signs Vital Signs: Vital Signs - 24 hr 12/10/21 18:27 12/10/21 19:51 12/11/21 04:45 Temperature 97.8 F 97.0 F L 97.5 F L Pulse Rate 72 61 79 Respiratory Rate 16 18 18 Blood Pressure 124/73 107/60 138/72 Pulse Oximetry 97 97 98 Intake/Output Intake/Output: Intake & Output 12/08/21 12/09/21 12/10/21 12/11/21 23:59 23:59 23:59 23:59 Intake Total 820 1210 590 390 Output Total 500 1200 600 600 Balance 320 10 -10 -210 Meds/Results Medications: Active Medications Generic Name Dose Route Start Last Admin Trade Name Freq PRN Reason Stop Dose Admin Acetaminophen 650 mg 12/07/21 19:04 12/08/21 11:00 Acetaminophen 325 Mg Tablet PO 650 mg Q4H PRN Administration Mild Pain (1-3) or Fever Hydrocodone Bitart/Acetaminophen 1 tab 12/07/21 19:04 12/11/21 08:25 Hydrocodone/Acetaminophen (*Crx) 5-325 Mg Tablet PO 1 tab Q4H PRN Administration Moderate Pain (4-6) Amitriptyline HCl 10 mg 12/07/21 22:55 12/10/21 20:13 Amitriptyline Hcl 10 Mg Tablet PO 10 mg HS KEILA Administration Docusate Sodium 100 mg 12/07/21 23:06 Docusate Sodium 100 Mg Capsule PO Q12H PRN Constipation Escitalopram Oxalate 20 mg 12/08/21 09:00 12/11/21 08:27 Escitalopram Oxalate 10 Mg Tablet PO 20 mg DAILY KEILA Administration Fentanyl Citrate 25 mcg 12/09/21 08:31 Fentanyl Citrate Inj (*Crx) 100 Mcg/2 Ml Vial IV PUSH Q2M PRN Pain Home Med 1 each 12/08/21 09:00 12/11/21 08:24 Vibegron [Gemtesa] 75 Mg Tablet (Home Med) PO 01/07/22 08:59 1 each DAILY KEILA Administration Latanoprost 1 drop 12/07/21 22:55 12/10/21 20:13 Latanoprost 0.005% Op Soln 2.5 Ml Btl EACH EYE 1 drop HS KEILA Administration Lisinopril 10 mg 12/08/21 09:00 12/11/21 08:27 Lisinopril 10 Mg Tablet PO 10 mg DAILY KEILA Administration Lorazepam 1 mg 12/07/21 22:55 12/10/21 20:13 Lorazepam (*Crx) 1 Mg Tablet PO 1 mg HS KEILA Administration Morphine Sulfate 2 mg 12/07/21 19:04 12/08/21 13:41 Morphine Sulfate (*Crx) 2 Mg/Ml Inj IV PUSH 2 mg Q4H PRN Administration Pain Rated 7-10 Naloxone HCl 0.1 mg 12/09/21 11:10 Naloxone Hcl 0.4 Mg/Ml Vial IV PUSH Q2M PRN Opiate Reversal Polyethylene Glycol 17 gm 12/10/21 09:00 12/11/21 08:24 Polyethylene Glycol 3350 17 Gm Powd.Pack
== END 2021-12-11 13:36 | disposition home or self-care (01) | DRG 482 ==
PROVIDERS: Orthopaedic Surgery; Physician Assistant; Admitting Provider Family Medicine; PCP Internal Medicine; Visit Provider Family Medicine
PROC: 0QS634Z Reposition Right Upper Femur with Internal Fixation Device, Percutaneous Approach (ICD-10-PCS; principal; 2021-12-09 09:00)
DX: S72.001A Fracture of unspecified part of neck of right femur, initial encounter for closed fracture (principal); W19.XXXA Unspecified fall, initial encounter; F41.8 Other specified anxiety disorders; I10 Essential (primary) hypertension; N32.81 Overactive bladder; R73.9 Hyperglycemia, unspecified; E66.9 Obesity, unspecified; Z68.30 Body mass index [BMI] 30.0-30.9, adult
CPT/HCPCS: 36415; 71045; 73502; 80048; 80053; 83735; 85027; 85610; 85730; 86850; 86900; 86901; 93005; 97110; 97116; 97161; 97165; 97530; 97535; A9270; C1713; C1769; J0690; J1100; J1170; J2250; J2270; J2405; J2704; J3010; J7120

== ENCOUNTER 2022-01-28 08:56 | Outpatient (CLI) | payer OTHER, BC, SELFPAY ==
--- NOTE | ~2022-01-28 | XR_ITS ---
EXAMINATION: XR hip RT min 3V w AP pelvis INDICATION: Right hip fracture status post internal fixation TECHNIQUE: AP view the pelvis and three views of the right hip are obtained. COMPARISON: 12/08/2021 FINDINGS: There has been interval percutaneous pinning of the previously described right femoral neck fracture. Alignment is normal. There is mild osteoarthritis of the hips. No additional fracture is i dentified. IMPRESSION: 1. Interval percutaneous pinning of the previously described right femoral neck fracture. Reviewed, dictated and finalized at location A.
== END 2022-01-28 08:57 | disposition home or self-care (01) ==
PROVIDERS: PCP Internal Medicine; Visit Provider Orthopaedic Surgery
DX: Z47.89 Encounter for other orthopedic aftercare (principal)
CPT/HCPCS: 73502